=== PATIENT | male | born 1960 | race Caucasian/White ===

== ENCOUNTER 2023-08-23 12:43 | Emergency (ER) | payer BC ==
[~2023-08-23] VITALS: Ht 175.3 cm; Wt 97.5 kg
[2023-08-23 12:44] VITALS: BP 167/101; PULSE 67; RESP 16; TEMP 98.1; O2SAT 97
== END 2023-08-23 13:18 | disposition left against medical advice (07) ==
LOC: ER 12:43
DX: R10.13 Epigastric pain (principal); Z53.21 Procedure and treatment not carried out due to patient leaving prior to being seen by health care provider
CPT/HCPCS: 99281